=== PATIENT | male | born 1960 | race Caucasian/White ===

== ENCOUNTER → 2023-12-24 | Outpatient (REF) | payer MEDICAID, SELFPAY ==
[2023-12-24 08:15] LABS: Hematocrit 33.3 % (40-54); Hemoglobin 10.5 g/dL (13.0-16.5); Mean Corp Hgb Conc 31.5 g/dL (32-36); Mean Corpuscular Hgb 30.1 pg (27.0-32.0); Mean Corpuscular Volume 95.4 fL (80-94); Mean Platelet Vol. 9.7 fl (6.2-12.0); Platelet Count 265 K/mm3 (150-450); RBC Distribution Width CV 13.8 % (11.6-14.6); RBC Distribution Width SD 48.3 fl (35.1-43.9); Red Blood Count 3.49 M/mm3 (4.6-6.2); White Blood Count 3.7 K/mm3 (4.4-11.0)
[2023-12-24 08:31] LABS: Anion Gap 7 (5-15); BUN 30 mg/dL (7-18); BUN/Creat Ratio 28.8 RATIO (10-20); Calcium,Total 9.1 mg/dL (8.5-10.1); Chloride 109 mmol/L (98-107); Creatinine, Serum 1.04 mg/dL (0.70-1.30); EST Glomerular Filtration Rate 77 mL/min (>60); Est Glom Filt Rate - Afr Amer 93 mL/min (>60); Glucose 133 mg/dL (74-106); Potassium 4.2 mmol/L (3.5-5.1); Sodium Level 140 mmol/L (136-145)
[2023-12-24 08:42] LABS: Hemoglobin A1c 7.1 % (3.8-5.6)
== END | disposition home or self-care (01) ==
LOC: OLS.SANC 05:52
PROVIDERS: Visit Provider Internal Medicine
DX: D64.9 Anemia, unspecified (principal); E11.9 Type 2 diabetes mellitus without complications; E87.5 Hyperkalemia; I82.409 Acute embolism and thrombosis of unspecified deep veins of unspecified lower extremity; I10 Essential (primary) hypertension; E78.5 Hyperlipidemia, unspecified; Z79.899 Other long term (current) drug therapy
CPT/HCPCS: 36415; 80048; 83036; 85027

== ENCOUNTER → 2023-12-28 | Outpatient (REF) | payer MEDICAID, SELFPAY ==
[2023-12-28 08:12] LABS: Anion Gap 4 (5-15); BUN 30 mg/dL (7-18); BUN/Creat Ratio 24.8 RATIO (10-20); Calcium,Total 8.7 mg/dL (8.5-10.1); Chloride 109 mmol/L (98-107); Creatinine, Serum 1.21 mg/dL (0.70-1.30); EST Glomerular Filtration Rate 64 mL/min (>60); Est Glom Filt Rate - Afr Amer 78 mL/min (>60); Glucose 117 mg/dL (74-106); Potassium 4.3 mmol/L (3.5-5.1); Sodium Level 138 mmol/L (136-145)
[2023-12-28 08:21] LABS: BNP,B-Type NATRIURETIC PEPTIDE 51.7 pg/mL (0-100)
== END | disposition home or self-care (01) ==
LOC: OLS.SANC 05:00
PROVIDERS: Visit Provider Internal Medicine
DX: D64.9 Anemia, unspecified (principal); E11.9 Type 2 diabetes mellitus without complications; I10 Essential (primary) hypertension; E78.5 Hyperlipidemia, unspecified
CPT/HCPCS: 36415; 80048; 83880

== ENCOUNTER → 2023-12-31 | Outpatient (REF) | payer MEDICAID, SELFPAY ==
[2023-12-31 08:37] LABS: Hematocrit 33.8 % (40-54); Hemoglobin 10.9 g/dL (13.0-16.5); Mean Corp Hgb Conc 32.2 g/dL (32-36); Mean Corpuscular Hgb 30.4 pg (27.0-32.0); Mean Corpuscular Volume 94.2 fL (80-94); Mean Platelet Vol. 9.7 fl (6.2-12.0); Platelet Count 252 K/mm3 (150-450); RBC Distribution Width CV 13.6 % (11.6-14.6); RBC Distribution Width SD 47.7 fl (35.1-43.9); Red Blood Count 3.59 M/mm3 (4.6-6.2); White Blood Count 4.9 K/mm3 (4.4-11.0)
[2023-12-31 08:45] LABS: Anion Gap 5 (5-15); BUN 31 mg/dL (7-18); BUN/Creat Ratio 21.2 RATIO (10-20); Calcium,Total 9.2 mg/dL (8.5-10.1); Chloride 108 mmol/L (98-107); Creatinine, Serum 1.46 mg/dL (0.70-1.30); EST Glomerular Filtration Rate 52 mL/min (>60); Est Glom Filt Rate - Afr Amer 63 mL/min (>60); Glucose 121 mg/dL (74-106); Potassium 4.7 mmol/L (3.5-5.1); Sodium Level 138 mmol/L (136-145)
== END | disposition home or self-care (01) ==
LOC: OLS.SANC 05:00
PROVIDERS: Visit Provider Internal Medicine
DX: D64.9 Anemia, unspecified (principal); E11.9 Type 2 diabetes mellitus without complications; I10 Essential (primary) hypertension; E78.5 Hyperlipidemia, unspecified
CPT/HCPCS: 36415; 80048; 85027

== ENCOUNTER → 2024-01-04 | Outpatient (REF) | payer MEDICAID, SELFPAY ==
[2024-01-04 07:40] LABS: Anion Gap 4 (5-15); BUN 30 mg/dL (7-18); BUN/Creat Ratio 23.6 RATIO (10-20); Chloride 110 mmol/L (98-107); Creatinine, Serum 1.27 mg/dL (0.70-1.30); EST Glomerular Filtration Rate 61 mL/min (>60); Est Glom Filt Rate - Afr Amer 74 mL/min (>60); Glucose 74 mg/dL (74-106); Potassium 4.7 mmol/L (3.5-5.1); Sodium Level 138 mmol/L (136-145)
== END | disposition home or self-care (01) ==
LOC: OLS.SANC 05:00
PROVIDERS: Visit Provider Internal Medicine
DX: D64.9 Anemia, unspecified (principal); E11.22 Type 2 diabetes mellitus with diabetic chronic kidney disease; N18.2 Chronic kidney disease, stage 2 (mild); E87.5 Hyperkalemia
CPT/HCPCS: 36415; 80048

== ENCOUNTER → 2024-01-07 | Outpatient (REF) | payer MEDICAID, SELFPAY ==
[2024-01-07 08:19] LABS: Hematocrit 31.1 % (40-54); Mean Corp Hgb Conc 32.2 g/dL (32-36); Mean Corpuscular Hgb 30.1 pg (27.0-32.0); Mean Corpuscular Volume 93.7 fL (80-94); Mean Platelet Vol. 9.5 fl (6.2-12.0); Platelet Count 166 K/mm3 (150-450); RBC Distribution Width CV 13.6 % (11.6-14.6); RBC Distribution Width SD 46.4 fl (35.1-43.9); Red Blood Count 3.32 M/mm3 (4.6-6.2)
[2024-01-07 08:29] LABS: Anion Gap 2 (5-15); BUN 25 mg/dL (7-18); BUN/Creat Ratio 19.1 RATIO (10-20); Calcium,Total 8.8 mg/dL (8.5-10.1); Chloride 108 mmol/L (98-107); Creatinine, Serum 1.31 mg/dL (0.70-1.30); EST Glomerular Filtration Rate 59 mL/min (>60); Est Glom Filt Rate - Afr Amer 71 mL/min (>60); Glucose 122 mg/dL (74-106); Potassium 4.9 mmol/L (3.5-5.1); Sodium Level 137 mmol/L (136-145)
== END | disposition home or self-care (01) ==
LOC: OLS.SANC 05:00
PROVIDERS: Visit Provider Internal Medicine
DX: D64.9 Anemia, unspecified (principal); E11.9 Type 2 diabetes mellitus without complications; I10 Essential (primary) hypertension; E78.5 Hyperlipidemia, unspecified
CPT/HCPCS: 36415; 80048; 85027

== ENCOUNTER → 2024-06-23 | Outpatient (REF) | payer MEDICAID, SELFPAY ==
[2024-06-23 09:06] LABS: Hematocrit 25.3 % (40-54); Hemoglobin 7.8 g/dL (13.0-16.5); Mean Corp Hgb Conc 30.8 g/dL (32-36); Mean Corpuscular Hgb 29.2 pg (27.0-32.0); Mean Corpuscular Volume 94.8 fL (80-94); Mean Platelet Vol. 8.7 fl (6.2-12.0); Platelet Count 477 K/mm3 (150-450); RBC Distribution Width CV 13.2 % (11.6-14.6); RBC Distribution Width SD 45.6 fl (35.1-43.9); Red Blood Count 2.67 M/mm3 (4.6-6.2)
[2024-06-23 09:53] LABS: ALB/GLOB Ratio 0.4 RATIO (0.9-2.4); AST(SGOT) 19 U/L (15-37); Alanine Aminotransfer ALT/SGPT 13 U/L (16-61); Alkaline Phosphatase 89 U/L (45-117); Anion Gap 5 (5-15); BUN 25 mg/dL (7-18); BUN/Creat Ratio 21.6 RATIO (10-20); Calcium,Total 8.8 mg/dL (8.5-10.1); Chloride 108 mmol/L (98-107); Cholesterol 113 mg/dL (200); Creatinine, Serum 1.16 mg/dL (0.70-1.30); EST Glomerular Filtration Rate 67 mL/min (>60); Est Glom Filt Rate - Afr Amer 81 mL/min (>60); Globulin 4.5 g/dL (2.2-4.2); Glucose 111 mg/dL (74-106); High Density Lipoprotein 39 mg/dL; Protein, Total 6.5 g/dL (6.4-8.2); Sodium Level 139 mmol/L (136-145); Triglycerides 124 mg/dL; Uric Acid 3.8 mg/dL (3.5-7.2); Very Low Density Lipoprotein 25 mg/dL (5-40)
[2024-06-23 10:33] LABS: Hemoglobin A1c 7.8 % (3.8-5.6)
[2024-06-23 15:56] LABS: Vitamin D,25 Hydroxy 27.8 ng/mL
== END | disposition home or self-care (01) ==
LOC: OLS.ACW100 05:00
PROVIDERS: Visit Provider Family Medicine
DX: Z00.00 Encounter for general adult medical examination without abnormal findings (principal)
CPT/HCPCS: 36415; 80053; 80061; 82306; 83036; 83735; 84443; 84550; 85027

== ENCOUNTER → 2024-06-30 | Outpatient (REF) | payer MEDICAID, SELFPAY ==
[2024-06-30 08:39] LABS: Hematocrit 26.4 % (40-54); Hemoglobin 8.4 g/dL (13.0-16.5); Mean Corp Hgb Conc 31.8 g/dL (32-36); Mean Corpuscular Hgb 29.4 pg (27.0-32.0); Mean Corpuscular Volume 92.3 fL (80-94); Mean Platelet Vol. 8.6 fl (6.2-12.0); Platelet Count 335 K/mm3 (150-450); RBC Distribution Width CV 13.2 % (11.6-14.6); RBC Distribution Width SD 44.7 fl (35.1-43.9); Red Blood Count 2.86 M/mm3 (4.6-6.2); White Blood Count 3.8 K/mm3 (4.4-11.0)
== END | disposition home or self-care (01) ==
LOC: OLS.ACW100 05:00
PROVIDERS: Visit Provider Family Medicine
DX: E11.65 Type 2 diabetes mellitus with hyperglycemia (principal); E11.40 Type 2 diabetes mellitus with diabetic neuropathy, unspecified
CPT/HCPCS: 36415; 85027

== ENCOUNTER → 2024-07-01 | Outpatient (REF) | payer MEDICAID, SELFPAY | END | disposition home or self-care (01) | LOC: OLS.ACW100 05:00 | PROVIDERS: Visit Provider Family Medicine | DX: E11.65 Type 2 diabetes mellitus with hyperglycemia (principal); E43 Unspecified severe protein-calorie malnutrition; E78.5 Hyperlipidemia, unspecified; F03.90 Unspecified dementia, unspecified severity, without behavioral disturbance, psychotic disturbance, mood disturbance, and anxiety | CPT/HCPCS: 36415; 87040 ==

== ENCOUNTER → 2024-07-07 | Outpatient (REF) | payer MEDICAID, SELFPAY ==
[2024-07-07 09:01] LABS: Hemoglobin 7.5 g/dL (13.0-16.5); Mean Corp Hgb Conc 31.3 g/dL (32-36); Mean Corpuscular Hgb 29.1 pg (27.0-32.0); Mean Platelet Vol. 9.2 fl (6.2-12.0); Platelet Count 273 K/mm3 (150-450); RBC Distribution Width CV 13.7 % (11.6-14.6); RBC Distribution Width SD 46.8 fl (35.1-43.9); Red Blood Count 2.58 M/mm3 (4.6-6.2); White Blood Count 4.3 K/mm3 (4.4-11.0)
[2024-07-08 03:57] LABS: Anion Gap 0 (5-15); BUN 26 mg/dL (7-18); BUN/Creat Ratio 22.8 RATIO (10-20); Calcium,Total 8.7 mg/dL (8.5-10.1); Chloride 111 mmol/L (98-107); Creatinine, Serum 1.14 mg/dL (0.70-1.30); EST Glomerular Filtration Rate 69 mL/min (>60); Est Glom Filt Rate - Afr Amer 83 mL/min (>60); Glucose 66 mg/dL (74-106); Potassium 5.2 mmol/L (3.5-5.1); Sodium Level 140 mmol/L (136-145)
== END | disposition home or self-care (01) ==
LOC: OLS.ACW100 05:00
PROVIDERS: Visit Provider Family Medicine
DX: E11.65 Type 2 diabetes mellitus with hyperglycemia (principal)
CPT/HCPCS: 36415; 80048; 85027

== ENCOUNTER → 2024-07-14 | Outpatient (REF) | payer MEDICAID, SELFPAY ==
[2024-07-14 09:58] LABS: Hematocrit 26.2 % (40-54); Mean Corp Hgb Conc 30.5 g/dL (32-36); Mean Corpuscular Hgb 28.7 pg (27.0-32.0); Mean Corpuscular Volume 93.9 fL (80-94); Mean Platelet Vol. 9.1 fl (6.2-12.0); Platelet Count 280 K/mm3 (150-450); RBC Distribution Width SD 47.9 fl (35.1-43.9); Red Blood Count 2.79 M/mm3 (4.6-6.2); White Blood Count 4.8 K/mm3 (4.4-11.0)
[2024-07-14 10:24] LABS: Anion Gap 5 (5-15); BUN 20 mg/dL (7-18); BUN/Creat Ratio 17.4 RATIO (10-20); Calcium,Total 8.8 mg/dL (8.5-10.1); Chloride 110 mmol/L (98-107); Creatinine, Serum 1.15 mg/dL (0.70-1.30); EST Glomerular Filtration Rate 68 mL/min (>60); Est Glom Filt Rate - Afr Amer 82 mL/min (>60); Glucose 77 mg/dL (74-106); Sodium Level 138 mmol/L (136-145)
== END | disposition home or self-care (01) ==
LOC: OLS.ACW100 05:00
PROVIDERS: Visit Provider Family Medicine
DX: E87.5 Hyperkalemia (principal); M86.171 Other acute osteomyelitis, right ankle and foot; E11.65 Type 2 diabetes mellitus with hyperglycemia; E11.40 Type 2 diabetes mellitus with diabetic neuropathy, unspecified
CPT/HCPCS: 36415; 80048; 85027

== ENCOUNTER → 2024-07-21 | Outpatient (REF) | payer MEDICAID, SELFPAY ==
[2024-07-21 08:35] LABS: Hematocrit 25.9 % (40-54); Mean Corp Hgb Conc 30.9 g/dL (32-36); Mean Corpuscular Hgb 29.3 pg (27.0-32.0); Mean Corpuscular Volume 94.9 fL (80-94); Mean Platelet Vol. 9.1 fl (6.2-12.0); Platelet Count 255 K/mm3 (150-450); RBC Distribution Width SD 47.7 fl (35.1-43.9); Red Blood Count 2.73 M/mm3 (4.6-6.2); White Blood Count 3.6 K/mm3 (4.4-11.0)
== END | disposition home or self-care (01) ==
LOC: OLS.ACW100 04:00
PROVIDERS: Referring Provider Family Medicine; Visit Provider Family Medicine
DX: M86.171 Other acute osteomyelitis, right ankle and foot (principal); E11.40 Type 2 diabetes mellitus with diabetic neuropathy, unspecified
CPT/HCPCS: 36415; 85027

== ENCOUNTER → 2024-07-28 | Outpatient (REF) | payer MEDICAID, SELFPAY ==
[2024-07-28 10:49] LABS: Hematocrit 20.8 % (40-54); Hemoglobin 6.4 g/dL (13.0-16.5); Mean Corp Hgb Conc 30.8 g/dL (32-36); Mean Corpuscular Hgb 29.1 pg (27.0-32.0); Mean Corpuscular Volume 94.5 fL (80-94); Mean Platelet Vol. 9.3 fl (6.2-12.0); Platelet Count 280 K/mm3 (150-450); RBC Distribution Width CV 13.8 % (11.6-14.6); RBC Distribution Width SD 47.4 fl (35.1-43.9); White Blood Count 4.8 K/mm3 (4.4-11.0)
== END | disposition home or self-care (01) ==
LOC: OLS.ACW200 05:00
PROVIDERS: Visit Provider Family Medicine
DX: M86.171 Other acute osteomyelitis, right ankle and foot (principal); E11.40 Type 2 diabetes mellitus with diabetic neuropathy, unspecified
CPT/HCPCS: 36415; 85027

== ENCOUNTER → 2024-08-11 05:00 | Outpatient (REF) | payer MEDICAID, SELFPAY ==
[2024-08-11 09:53] LABS: Hematocrit 33.2 % (40-54); Mean Corp Hgb Conc 30.1 g/dL (32-36); Mean Corpuscular Hgb 28.3 pg (27.0-32.0); Mean Corpuscular Volume 94.1 fL (80-94); Mean Platelet Vol. 8.9 fl (6.2-12.0); Platelet Count 284 K/mm3 (150-450); RBC Distribution Width CV 15.5 % (11.6-14.6); Red Blood Count 3.53 M/mm3 (4.6-6.2); White Blood Count 4.5 K/mm3 (4.4-11.0)
== END ==
LOC: OLS.ACW200 05:00
PROVIDERS: Visit Provider Family Medicine
DX: M86.171 Other acute osteomyelitis, right ankle and foot (principal); E11.65 Type 2 diabetes mellitus with hyperglycemia; Z16.24 Resistance to multiple antibiotics; E11.40 Type 2 diabetes mellitus with diabetic neuropathy, unspecified
CPT/HCPCS: 36415; 85027

== ENCOUNTER → 2024-08-18 05:00 | Outpatient (REF) | payer MEDICAID, SELFPAY ==
[2024-08-18 09:20] LABS: Hematocrit 35.4 % (40-54); Hemoglobin 10.6 g/dL (13.0-16.5); Mean Corp Hgb Conc 29.9 g/dL (32-36); Mean Corpuscular Hgb 28.4 pg (27.0-32.0); Mean Corpuscular Volume 94.9 fL (80-94); Mean Platelet Vol. 9.2 fl (6.2-12.0); Platelet Count 247 K/mm3 (150-450); RBC Distribution Width CV 15.4 % (11.6-14.6); RBC Distribution Width SD 53.1 fl (35.1-43.9); Red Blood Count 3.73 M/mm3 (4.6-6.2)
== END ==
LOC: OLS.ACW200 05:00
PROVIDERS: Visit Provider Family Medicine
DX: M86.171 Other acute osteomyelitis, right ankle and foot (principal); E11.65 Type 2 diabetes mellitus with hyperglycemia; Z16.24 Resistance to multiple antibiotics; E11.40 Type 2 diabetes mellitus with diabetic neuropathy, unspecified
CPT/HCPCS: 36415; 85027

== ENCOUNTER → 2024-08-25 05:00 | Outpatient (REF) | payer MEDICAID, SELFPAY ==
[2024-08-25 09:26] LABS: Hematocrit 31.8 % (40-54); Hemoglobin 9.8 g/dL (13.0-16.5); Mean Corp Hgb Conc 30.8 g/dL (32-36); Mean Corpuscular Hgb 28.7 pg (27.0-32.0); Mean Corpuscular Volume 93.3 fL (80-94); Mean Platelet Vol. 9.1 fl (6.2-12.0); Platelet Count 209 K/mm3 (150-450); RBC Distribution Width CV 15.1 % (11.6-14.6); RBC Distribution Width SD 51.8 fl (35.1-43.9); Red Blood Count 3.41 M/mm3 (4.6-6.2); White Blood Count 3.4 K/mm3 (4.4-11.0)
== END ==
LOC: OLS.ACW200 05:00
PROVIDERS: Visit Provider Family Medicine
DX: M86.171 Other acute osteomyelitis, right ankle and foot (principal); E11.65 Type 2 diabetes mellitus with hyperglycemia; Z16.24 Resistance to multiple antibiotics; E11.40 Type 2 diabetes mellitus with diabetic neuropathy, unspecified
CPT/HCPCS: 36415; 85027

== ENCOUNTER → 2024-09-01 05:00 | Outpatient (REF) | payer MEDICAID, SELFPAY ==
[2024-09-01 09:40] LABS: Hematocrit 33.4 % (40-54); Hemoglobin 10.3 g/dL (13.0-16.5); Mean Corp Hgb Conc 30.8 g/dL (32-36); Mean Corpuscular Hgb 29.4 pg (27.0-32.0); Mean Corpuscular Volume 95.4 fL (80-94); Mean Platelet Vol. 9.3 fl (6.2-12.0); Platelet Count 173 K/mm3 (150-450); RBC Distribution Width CV 15.4 % (11.6-14.6); RBC Distribution Width SD 53.1 fl (35.1-43.9); White Blood Count 5.5 K/mm3 (4.4-11.0)
== END ==
LOC: OLS.ACW200 05:00
PROVIDERS: Visit Provider Family Medicine
DX: M86.171 Other acute osteomyelitis, right ankle and foot (principal); E11.65 Type 2 diabetes mellitus with hyperglycemia; Z16.24 Resistance to multiple antibiotics; E11.40 Type 2 diabetes mellitus with diabetic neuropathy, unspecified
CPT/HCPCS: 36415; 85027

== ENCOUNTER → 2024-09-08 | Outpatient (REF) | payer MEDICAID, SELFPAY ==
[2024-09-08 08:27] LABS: Hematocrit 31.9 % (40-54); Mean Corp Hgb Conc 31.3 g/dL (32-36); Mean Corpuscular Hgb 29.8 pg (27.0-32.0); Mean Corpuscular Volume 94.9 fL (80-94); Mean Platelet Vol. 9.4 fl (6.2-12.0); Platelet Count 151 K/mm3 (150-450); RBC Distribution Width CV 15.4 % (11.6-14.6); RBC Distribution Width SD 53.6 fl (35.1-43.9); Red Blood Count 3.36 M/mm3 (4.6-6.2); White Blood Count 4.6 K/mm3 (4.4-11.0)
[2024-09-08 09:57] LABS: Pro- Brain NATRIURETIC PEPTIDE 3548 pg/mL (<=900)
[2024-09-08 10:54] LABS: ALB/GLOB Ratio 1.2 RATIO (0.9-2.4); AST(SGOT) 16 U/L (<=37); Alanine Aminotransfer ALT/SGPT 10 U/L (<=46); Albumin, Serum 3.4 g/dL (3.4-4.8); Alkaline Phosphatase 81 U/L (40-129); Anion Gap 9 (5-15); BUN 23 mg/dL (4-19); BUN/Creat Ratio 19.7 RATIO (10-20); Calcium 8.6 mg/dL (7.6-11.0); Carbon Dioxide 23.1 mmol/L (22.0-29.0); Chloride 103 mmol/L (96-108); Creatinine, Serum 1.17 mg/dL (0.70-1.20); EST Glomerular Filtration Rate 70 (>60); Globulin 2.7 g/dL (2.2-4.2); Glucose 164 mg/dL (70-99); Potassium 5.3 mmol/L (3.3-5.1); Protein, Total 6.1 g/dL (5.9-8.4); Sodium Level 136 mmol/L (133-145); Total Bilirubin < 0.15 mg/dL (0.00-1.30)
== END | disposition home or self-care (01) ==
LOC: OLS.ACW100 04:00
PROVIDERS: Referring Provider Family Medicine; Visit Provider Family Medicine
DX: D64.9 Anemia, unspecified (principal); M86.171 Other acute osteomyelitis, right ankle and foot; S92.491D Other fracture of right great toe, subsequent encounter for fracture with routine healing; R41.841 Cognitive communication deficit
CPT/HCPCS: 36415; 80053; 83880; 85027

== ENCOUNTER → 2024-09-12 | Outpatient (REF) | payer MEDICAID, SELFPAY ==
[2024-09-12 07:58] LABS: Hematocrit 32.9 % (40-54); Mean Corp Hgb Conc 30.4 g/dL (32-36); Mean Corpuscular Hgb 29.4 pg (27.0-32.0); Mean Corpuscular Volume 96.8 fL (80-94); Mean Platelet Vol. 9.3 fl (6.2-12.0); Platelet Count 177 K/mm3 (150-450); RBC Distribution Width CV 15.5 % (11.6-14.6); RBC Distribution Width SD 54.4 fl (35.1-43.9); White Blood Count 4.6 K/mm3 (4.4-11.0)
[2024-09-12 08:25] LABS: Pro- Brain NATRIURETIC PEPTIDE 3949 pg/mL (<=900)
[2024-09-12 08:33] LABS: ALB/GLOB Ratio 1.2 RATIO (0.9-2.4); AST(SGOT) 16 U/L (<=37); Alanine Aminotransfer ALT/SGPT 11 U/L (<=46); Albumin, Serum 3.5 g/dL (3.4-4.8); Alkaline Phosphatase 83 U/L (40-129); Anion Gap 13 (5-15); BUN 28 mg/dL (4-19); BUN/Creat Ratio 19.1 RATIO (10-20); Calcium,Total 8.6 mg/dL (7.6-11.0); Carbon Dioxide 21.3 mmol/L (21.0-32.0); Chloride 101 mmol/L (98-108); Creatinine, Serum 1.46 mg/dL (0.70-1.20); EST Glomerular Filtration Rate 53 (>60); Globulin 2.9 g/dL (2.2-4.2); Glucose 226 mg/dL (70-99); Potassium 5.9 mmol/L (3.3-5.1); Protein, Total 6.4 g/dL (5.9-8.4); Sodium Level 135 mmol/L (133-145); Total Bilirubin < 0.15 mg/dL (0.00-1.30)
== END | disposition home or self-care (01) ==
LOC: OLS.ACW200 05:00
PROVIDERS: Visit Provider Family Medicine
DX: M86.171 Other acute osteomyelitis, right ankle and foot (principal); D64.9 Anemia, unspecified; S92.491D Other fracture of right great toe, subsequent encounter for fracture with routine healing; R41.841 Cognitive communication deficit
CPT/HCPCS: 36415; 80053; 83880; 85027

== ENCOUNTER → 2024-09-15 | Outpatient (REF) | payer MEDICAID, SELFPAY ==
[2024-09-15 08:23] LABS: Hematocrit 28.5 % (40-54); Hemoglobin 8.9 g/dL (13.0-16.5); Mean Corp Hgb Conc 31.2 g/dL (32-36); Mean Corpuscular Hgb 29.7 pg (27.0-32.0); Mean Platelet Vol. 9.3 fl (6.2-12.0); Platelet Count 165 K/mm3 (150-450); RBC Distribution Width CV 15.6 % (11.6-14.6); RBC Distribution Width SD 53.7 fl (35.1-43.9); White Blood Count 3.5 K/mm3 (4.4-11.0)
[2024-09-15 09:01] LABS: Anion Gap 10 (5-15); BUN 34 mg/dL (4-19); BUN/Creat Ratio 21.3 RATIO (10-20); Calcium,Total 8.1 mg/dL (7.6-11.0); Carbon Dioxide 21.1 mmol/L (21.0-32.0); Chloride 99 mmol/L (98-108); Creatinine, Serum 1.59 mg/dL (0.70-1.20); EST Glomerular Filtration Rate 48 (>60); Glucose 185 mg/dL (70-99); Potassium 5.9 mmol/L (3.3-5.1); Sodium Level 131 mmol/L (133-145)
== END | disposition home or self-care (01) ==
LOC: OLS.ACW200 05:00
PROVIDERS: Visit Provider Family Medicine
DX: M86.171 Other acute osteomyelitis, right ankle and foot (principal); E11.65 Type 2 diabetes mellitus with hyperglycemia; E11.40 Type 2 diabetes mellitus with diabetic neuropathy, unspecified
CPT/HCPCS: 36415; 80048; 85027

== ENCOUNTER → 2024-09-22 | Outpatient (REF) | payer MEDICAID, SELFPAY ==
[2024-09-22 09:07] LABS: Hemoglobin 9.2 g/dL (13.0-16.5); Mean Corp Hgb Conc 29.7 g/dL (32-36); Mean Corpuscular Hgb 29.4 pg (27.0-32.0); Mean Platelet Vol. 9.3 fl (6.2-12.0); Platelet Count 219 K/mm3 (150-450); RBC Distribution Width CV 16.1 % (11.6-14.6); RBC Distribution Width SD 57.7 fl (35.1-43.9); Red Blood Count 3.13 M/mm3 (4.6-6.2); White Blood Count 3.5 K/mm3 (4.4-11.0)
[2024-09-22 13:55] LABS: ALB/GLOB Ratio 1.2 RATIO (0.9-2.4); AST(SGOT) 13 U/L (<=37); Alanine Aminotransfer ALT/SGPT 11 U/L (<=46); Albumin, Serum 3.6 g/dL (3.4-4.8); Alkaline Phosphatase 100 U/L (40-129); Anion Gap 9 (5-15); BUN 33 mg/dL (4-19); BUN/Creat Ratio 24.7 RATIO (10-20); Chloride 105 mmol/L (98-108); Creatinine, Serum 1.32 mg/dL (0.70-1.20); EST Glomerular Filtration Rate 60 (>60); Globulin 2.9 g/dL (2.2-4.2); Glucose 94 mg/dL (70-99); Potassium 5.2 mmol/L (3.3-5.1); Protein, Total 6.4 g/dL (5.9-8.4); Sodium Level 138 mmol/L (133-145); Total Bilirubin 0.21 mg/dL (0.00-1.30)
== END | disposition home or self-care (01) ==
LOC: OLS.ACW200 05:00
PROVIDERS: Visit Provider Family Medicine
DX: M86.171 Other acute osteomyelitis, right ankle and foot (principal); D64.9 Anemia, unspecified
CPT/HCPCS: 36415; 80053; 85027

== ENCOUNTER → 2024-10-13 | Outpatient (REF) | payer MEDICAID, SELFPAY ==
[2024-10-13 10:07] LABS: Hematocrit 33.3 % (40-54); Hemoglobin 10.3 g/dL (13.0-16.5); Mean Corp Hgb Conc 30.9 g/dL (32-36); Mean Corpuscular Hgb 30.3 pg (27.0-32.0); Mean Corpuscular Volume 97.9 fL (80-94); Mean Platelet Vol. 9.8 fl (6.2-12.0); Platelet Count 196 K/mm3 (150-450); RBC Distribution Width CV 15.1 % (11.6-14.6); RBC Distribution Width SD 54.4 fl (35.1-43.9); White Blood Count 4.8 K/mm3 (4.4-11.0)
[2024-10-13 10:13] LABS: ALB/GLOB Ratio 1.4 RATIO (0.9-2.4); AST(SGOT) 17 U/L (<=37); Alanine Aminotransfer ALT/SGPT 15 U/L (<=46); Albumin, Serum 3.7 g/dL (3.4-4.8); Alkaline Phosphatase 83 U/L (40-129); Anion Gap 10 (5-15); BUN 30 mg/dL (4-19); BUN/Creat Ratio 22.7 RATIO (10-20); Calcium,Total 8.8 mg/dL (7.6-11.0); Chloride 105 mmol/L (98-108); EST Glomerular Filtration Rate 61 (>60); Globulin 2.7 g/dL (2.2-4.2); Glucose 167 mg/dL (70-99); Potassium 5.7 mmol/L (3.3-5.1); Protein, Total 6.4 g/dL (5.9-8.4); Sodium Level 137 mmol/L (133-145); Total Bilirubin 0.18 mg/dL (0.00-1.30)
== END | disposition home or self-care (01) ==
LOC: OLS.ACW200 05:00
PROVIDERS: Visit Provider Family Medicine
DX: D64.9 Anemia, unspecified (principal); M86.171 Other acute osteomyelitis, right ankle and foot; S92.491D Other fracture of right great toe, subsequent encounter for fracture with routine healing; R41.841 Cognitive communication deficit
CPT/HCPCS: 36415; 80053; 85027

== ENCOUNTER → 2024-10-20 | Outpatient (REF) | payer MEDICAID, SELFPAY ==
[2024-10-20 09:03] LABS: Hematocrit 30.7 % (40-54); Hemoglobin 9.6 g/dL (13.0-16.5); Mean Corp Hgb Conc 31.3 g/dL (32-36); Mean Corpuscular Hgb 30.1 pg (27.0-32.0); Mean Corpuscular Volume 96.2 fL (80-94); Mean Platelet Vol. 9.5 fl (6.2-12.0); Platelet Count 142 K/mm3 (150-450); RBC Distribution Width CV 14.8 % (11.6-14.6); RBC Distribution Width SD 52.8 fl (35.1-43.9); Red Blood Count 3.19 M/mm3 (4.6-6.2); White Blood Count 3.6 K/mm3 (4.4-11.0)
[2024-10-20 09:34] LABS: ALB/GLOB Ratio 1.4 RATIO (0.9-2.4); AST(SGOT) 17 U/L (<=37); Alanine Aminotransfer ALT/SGPT 16 U/L (<=46); Albumin, Serum 3.8 g/dL (3.4-4.8); Alkaline Phosphatase 81 U/L (40-129); Anion Gap 10 (5-15); BUN 32 mg/dL (4-19); BUN/Creat Ratio 23.9 RATIO (10-20); Calcium,Total 8.7 mg/dL (7.6-11.0); Carbon Dioxide 21.4 mmol/L (21.0-32.0); Chloride 104 mmol/L (98-108); Creatinine, Serum 1.32 mg/dL (0.70-1.20); EST Glomerular Filtration Rate 60 (>60); Globulin 2.6 g/dL (2.2-4.2); Glucose 212 mg/dL (70-99); Potassium 5.4 mmol/L (3.3-5.1); Protein, Total 6.4 g/dL (5.9-8.4); Sodium Level 136 mmol/L (133-145); Total Bilirubin 0.18 mg/dL (0.00-1.30)
== END | disposition home or self-care (01) ==
LOC: OLS.ACW200 05:00
PROVIDERS: Visit Provider Family Medicine
DX: M86.171 Other acute osteomyelitis, right ankle and foot (principal); D64.9 Anemia, unspecified; S92.491D Other fracture of right great toe, subsequent encounter for fracture with routine healing; R41.841 Cognitive communication deficit
CPT/HCPCS: 36415; 80053; 85027

== ENCOUNTER → 2024-10-21 | Outpatient (REF) | payer SELFPAY | LOC: OLS.ACW100 06:00 | PROVIDERS: Visit Provider Family Medicine | DX: M86.171 Other acute osteomyelitis, right ankle and foot (principal); D64.9 Anemia, unspecified; S92.491D Other fracture of right great toe, subsequent encounter for fracture with routine healing; R41.841 Cognitive communication deficit ==

== ENCOUNTER → 2024-10-22 | Outpatient (REF) | payer MEDICAID, SELFPAY ==
[2024-10-22 08:01] LABS: Hematocrit 29.2 % (40-54); Hemoglobin 9.4 g/dL (13.0-16.5); Mean Corp Hgb Conc 32.2 g/dL (32-36); Mean Corpuscular Hgb 30.2 pg (27.0-32.0); Mean Corpuscular Volume 93.9 fL (80-94); Mean Platelet Vol. 9.8 fl (6.2-12.0); Platelet Count 150 K/mm3 (150-450); Red Blood Count 3.11 M/mm3 (4.6-6.2); White Blood Count 3.6 K/mm3 (4.4-11.0)
[2024-10-22 08:18] LABS: ALB/GLOB Ratio 1.4 RATIO (0.9-2.4); AST(SGOT) 24 U/L (<=37); Alanine Aminotransfer ALT/SGPT 21 U/L (<=46); Albumin, Serum 3.5 g/dL (3.4-4.8); Alkaline Phosphatase 84 U/L (40-129); Anion Gap 9 (5-15); BUN 31 mg/dL (4-19); BUN/Creat Ratio 23.5 RATIO (10-20); Calcium,Total 8.6 mg/dL (7.6-11.0); Carbon Dioxide 23.4 mmol/L (21.0-32.0); Chloride 106 mmol/L (98-108); EST Glomerular Filtration Rate 61 (>60); Globulin 2.5 g/dL (2.2-4.2); Glucose 107 mg/dL (70-99); Potassium 5.2 mmol/L (3.3-5.1); Sodium Level 138 mmol/L (133-145); Total Bilirubin 0.17 mg/dL (0.00-1.30)
== END | disposition home or self-care (01) ==
LOC: OLS.ACW200 05:00
PROVIDERS: Visit Provider Family Medicine
DX: M86.171 Other acute osteomyelitis, right ankle and foot (principal); N39.0 Urinary tract infection, site not specified; D64.9 Anemia, unspecified; S92.491D Other fracture of right great toe, subsequent encounter for fracture with routine healing
CPT/HCPCS: 36415; 80053; 85027

== ENCOUNTER → 2024-11-03 | Outpatient (REF) | payer MEDICAID, SELFPAY ==
[2024-11-03 09:23] LABS: Hematocrit 31.4 % (40-54); Hemoglobin 9.8 g/dL (13.0-16.5); Mean Corp Hgb Conc 31.2 g/dL (32-36); Mean Corpuscular Volume 99.4 fL (80-94); Mean Platelet Vol. 9.5 fl (6.2-12.0); Platelet Count 180 K/mm3 (150-450); RBC Distribution Width CV 14.7 % (11.6-14.6); RBC Distribution Width SD 53.9 fl (35.1-43.9); Red Blood Count 3.16 M/mm3 (4.6-6.2); White Blood Count 3.8 K/mm3 (4.4-11.0)
[2024-11-03 09:44] LABS: Anion Gap 10 (5-15); BUN 32 mg/dL (4-19); BUN/Creat Ratio 21.3 RATIO (10-20); Calcium,Total 8.4 mg/dL (7.6-11.0); Carbon Dioxide 23.4 mmol/L (21.0-32.0); Chloride 106 mmol/L (98-108); Creatinine, Serum 1.52 mg/dL (0.70-1.20); EST Glomerular Filtration Rate 51 (>60); Glucose 301 mg/dL (70-99); Potassium 5.1 mmol/L (3.3-5.1); Sodium Level 139 mmol/L (133-145)
== END | disposition home or self-care (01) ==
LOC: OLS.ACW200 05:00
PROVIDERS: Visit Provider Family Medicine
DX: M86.171 Other acute osteomyelitis, right ankle and foot (principal); N39.0 Urinary tract infection, site not specified; D64.9 Anemia, unspecified
CPT/HCPCS: 36415; 80048; 85027

== ENCOUNTER → 2024-11-10 | Outpatient (REF) | payer MEDICAID, SELFPAY ==
[2024-11-10 09:56] LABS: Hematocrit 28.6 % (40-54); Hemoglobin 8.9 g/dL (13.0-16.5); Mean Corp Hgb Conc 31.1 g/dL (32-36); Mean Corpuscular Hgb 30.7 pg (27.0-32.0); Mean Corpuscular Volume 98.6 fL (80-94); Mean Platelet Vol. 9.8 fl (6.2-12.0); Platelet Count 147 K/mm3 (150-450); RBC Distribution Width CV 14.9 % (11.6-14.6); RBC Distribution Width SD 53.2 fl (35.1-43.9); White Blood Count 2.8 K/mm3 (4.4-11.0)
[2024-11-10 10:12] LABS: Anion Gap 8 (5-15); BUN 32 mg/dL (4-19); BUN/Creat Ratio 23.5 RATIO (10-20); Calcium,Total 8.6 mg/dL (7.6-11.0); Carbon Dioxide 24.9 mmol/L (21.0-32.0); Chloride 105 mmol/L (98-108); Creatinine, Serum 1.38 mg/dL (0.70-1.20); EST Glomerular Filtration Rate 57 (>60); Glucose 117 mg/dL (70-99); Potassium 5.1 mmol/L (3.3-5.1); Sodium Level 138 mmol/L (133-145)
== END | disposition home or self-care (01) ==
LOC: OLS.ACW100 04:00
PROVIDERS: Referring Provider Family Medicine; Visit Provider Family Medicine
DX: M86.171 Other acute osteomyelitis, right ankle and foot (principal); N39.0 Urinary tract infection, site not specified; D64.9 Anemia, unspecified
CPT/HCPCS: 36415; 80048; 85027

== ENCOUNTER → 2024-11-17 | Outpatient (REF) | payer MEDICAID, SELFPAY ==
[2024-11-17 10:00] LABS: Hematocrit 26.6 % (40-54); Hemoglobin 8.1 g/dL (13.0-16.5); Mean Corp Hgb Conc 30.5 g/dL (32-36); Mean Corpuscular Hgb 30.8 pg (27.0-32.0); Mean Corpuscular Volume 101.1 fL (80-94); Platelet Count 140 K/mm3 (150-450); RBC Distribution Width CV 14.8 % (11.6-14.6); RBC Distribution Width SD 54.6 fl (35.1-43.9); Red Blood Count 2.63 M/mm3 (4.6-6.2)
[2024-11-17 10:15] LABS: Anion Gap 9 (5-15); BUN 30 mg/dL (4-19); BUN/Creat Ratio 23.3 RATIO (10-20); Calcium,Total 8.6 mg/dL (7.6-11.0); Carbon Dioxide 24.3 mmol/L (21.0-32.0); Chloride 105 mmol/L (98-108); Creatinine, Serum 1.27 mg/dL (0.70-1.20); EST Glomerular Filtration Rate 63 (>60); Glucose 192 mg/dL (70-99); Potassium 5.2 mmol/L (3.3-5.1); Sodium Level 138 mmol/L (133-145)
== END | disposition home or self-care (01) ==
LOC: OLS.ACW200 05:00
PROVIDERS: Visit Provider Family Medicine
DX: M86.171 Other acute osteomyelitis, right ankle and foot (principal); N39.0 Urinary tract infection, site not specified; D64.9 Anemia, unspecified
CPT/HCPCS: 36415; 80048; 85027

== ENCOUNTER → 2024-12-02 | Outpatient (REF) | payer MEDICAID, SELFPAY ==
[2024-12-02 09:00] LABS: Hematocrit 30.3 % (40-54); Hemoglobin 9.5 g/dL (13.0-16.5); Mean Corp Hgb Conc 31.4 g/dL (32-36); Mean Corpuscular Hgb 30.9 pg (27.0-32.0); Mean Corpuscular Volume 98.7 fL (80-94); Mean Platelet Vol. 9.8 fl (6.2-12.0); Platelet Count 195 K/mm3 (150-450); RBC Distribution Width CV 13.6 % (11.6-14.6); Red Blood Count 3.07 M/mm3 (4.6-6.2); White Blood Count 3.5 K/mm3 (4.4-11.0)
[2024-12-02 09:17] LABS: Anion Gap 10 (5-15); BUN 41 mg/dL (4-19); BUN/Creat Ratio 27.2 RATIO (10-20); Calcium,Total 8.8 mg/dL (7.6-11.0); Carbon Dioxide 22.2 mmol/L (21.0-32.0); Chloride 105 mmol/L (98-108); Creatinine, Serum 1.51 mg/dL (0.70-1.20); EST Glomerular Filtration Rate 51 (>60); Glucose 314 mg/dL (70-99); Potassium 5.5 mmol/L (3.3-5.1); Sodium Level 137 mmol/L (133-145)
== END | disposition home or self-care (01) ==
LOC: OLS.ACW100 04:00
PROVIDERS: Referring Provider Family Medicine; Visit Provider Family Medicine
DX: M86.171 Other acute osteomyelitis, right ankle and foot (principal); N39.0 Urinary tract infection, site not specified; D64.9 Anemia, unspecified
CPT/HCPCS: 36415; 80048; 85027

== ENCOUNTER → 2024-12-10 04:00 | Outpatient (REF) | payer MEDICAID, SELFPAY ==
[2024-12-10 07:57] LABS: Hematocrit 28.1 % (40-54); Hemoglobin 8.8 g/dL (13.0-16.5); Mean Corp Hgb Conc 31.3 g/dL (32-36); Mean Corpuscular Hgb 30.7 pg (27.0-32.0); Mean Corpuscular Volume 97.9 fL (80-94); Mean Platelet Vol. 10.2 fl (6.2-12.0); Platelet Count 140 K/mm3 (150-450); RBC Distribution Width CV 13.5 % (11.6-14.6); RBC Distribution Width SD 48.2 fl (35.1-43.9); Red Blood Count 2.87 M/mm3 (4.6-6.2); White Blood Count 3.7 K/mm3 (4.4-11.0)
[2024-12-10 08:12] LABS: Anion Gap 10 (5-15); BUN 32 mg/dL (4-19); BUN/Creat Ratio 21.7 RATIO (10-20); Calcium,Total 8.6 mg/dL (7.6-11.0); Carbon Dioxide 23.1 mmol/L (21.0-32.0); Chloride 105 mmol/L (98-108); Creatinine, Serum 1.49 mg/dL (0.70-1.20); EST Glomerular Filtration Rate 52 (>60); Glucose 145 mg/dL (70-99); Sodium Level 138 mmol/L (133-145)
== END ==
LOC: OLS.ACW100 04:00
PROVIDERS: Referring Provider Family Medicine; Visit Provider Family Medicine
DX: M86.171 Other acute osteomyelitis, right ankle and foot (principal); D64.9 Anemia, unspecified
CPT/HCPCS: 36415; 80048; 85027

== ENCOUNTER → 2024-12-15 | Outpatient (REF) | payer MEDICAID, SELFPAY ==
[2024-12-15 07:40] LABS: Hematocrit 25.8 % (40-54); Hemoglobin 8.2 g/dL (13.0-16.5); Mean Corp Hgb Conc 31.8 g/dL (32-36); Mean Corpuscular Hgb 31.1 pg (27.0-32.0); Mean Corpuscular Volume 97.7 fL (80-94); Mean Platelet Vol. 10.6 fl (6.2-12.0); Platelet Count 117 K/mm3 (150-450); RBC Distribution Width CV 13.5 % (11.6-14.6); RBC Distribution Width SD 48.1 fl (35.1-43.9); Red Blood Count 2.64 M/mm3 (4.6-6.2)
[2024-12-15 07:51] LABS: Anion Gap 9 (5-15); BUN 41 mg/dL (4-19); BUN/Creat Ratio 25.1 RATIO (10-20); Calcium,Total 8.5 mg/dL (7.6-11.0); Chloride 103 mmol/L (98-108); Creatinine, Serum 1.62 mg/dL (0.70-1.20); EST Glomerular Filtration Rate 47 (>60); Glucose 281 mg/dL (70-99); Potassium 4.7 mmol/L (3.3-5.1); Sodium Level 137 mmol/L (133-145)
== END | disposition home or self-care (01) ==
LOC: OLS.ACW200 05:00
PROVIDERS: Visit Provider Family Medicine
DX: M86.171 Other acute osteomyelitis, right ankle and foot (principal); N39.0 Urinary tract infection, site not specified; D64.9 Anemia, unspecified; S92.491D Other fracture of right great toe, subsequent encounter for fracture with routine healing
CPT/HCPCS: 36415; 80048; 85027

== ENCOUNTER → 2025-01-01 | Outpatient (REF) | payer MEDICAID, SELFPAY ==
[2025-01-01 09:30] LABS: Erythrocyte Sedimentation Rate 1 mm/hr (0-20)
[2025-01-01 09:31] LABS: Hemoglobin 3.9 g/dL (13.0-16.5); Mean Corpuscular Hgb 31.7 pg (27.0-32.0); Mean Corpuscular Volume 105.7 fL (80-94); Mean Platelet Vol. 10.1 fl (6.2-12.0); POSITIVE COUNT YES; Platelet Count 154 K/mm3 (150-450); RBC Distribution Width CV 17.3 % (11.6-14.6); RBC Distribution Width SD 58.4 fl (35.1-43.9); Red Blood Count 1.23 M/mm3 (4.6-6.2); White Blood Count 3.8 K/mm3 (4.4-11.0)
[2025-01-01 09:38] LABS: ALB/GLOB Ratio 1.6 RATIO (0.9-2.4); AST(SGOT) 22 U/L (<=37); Alanine Aminotransfer ALT/SGPT 16 U/L (<=46); Albumin, Serum 3.1 g/dL (3.4-4.8); Alkaline Phosphatase 50 U/L (40-129); Anion Gap 12 (5-15); BUN 92 mg/dL (4-19); BUN/Creat Ratio 42.7 RATIO (10-20); Calcium,Total 7.9 mg/dL (7.6-11.0); Carbon Dioxide 17.1 mmol/L (21.0-32.0); Chloride 108 mmol/L (98-108); Cholesterol 81 mg/dL (<=200); Creatinine, Serum 2.15 mg/dL (0.70-1.20); EST Glomerular Filtration Rate 34 (>60); Glucose 181 mg/dL (70-99); High Density Lipoprotein 30 mg/dL; Low Density Lipoprotein Calc. 18 mg/dL; Magnesium 2.3 mg/dL (1.5-2.2); Protein, Total 5.1 g/dL (5.9-8.4); Scan Indicated on CBC? Y/N YES- FLAGS NOTED; Sodium Level 137 mmol/L (133-145); Total Bilirubin 0.18 mg/dL (0.00-1.30); Triglycerides 162 mg/dL; Very Low Density Lipoprotein 32 mg/dL (5-40); cholesterol:hdl ratio screen 2.66
== END | disposition home or self-care (01) ==
LOC: OLS.ACW200 07:20
PROVIDERS: Visit Provider Family Medicine
DX: M86.171 Other acute osteomyelitis, right ankle and foot (principal); N39.0 Urinary tract infection, site not specified; D64.9 Anemia, unspecified; S92.491D Other fracture of right great toe, subsequent encounter for fracture with routine healing
CPT/HCPCS: 36415; 80053; 80061; 83735; 84443; 85027; 85652

== ENCOUNTER → 2025-01-15 | Outpatient (REF) | payer MEDICAID, SELFPAY ==
[2025-01-15 10:17] LABS: Cholesterol 203 mg/dL (<=200); Low Density Lipoprotein Calc. 116 mg/dL; Magnesium 2.2 mg/dL (1.5-2.2); Triglycerides 182 mg/dL; Very Low Density Lipoprotein 36 mg/dL (5-40); Vitamin D,25 Hydroxy 24.2 ng/mL (30-100); cholesterol:hdl ratio screen 4.01
[2025-01-15 10:23] LABS: AST(SGOT) 27 U/L (<=37); Alanine Aminotransfer ALT/SGPT 21 U/L (<=46); Albumin, Serum 3.4 g/dL (3.4-4.8); Alkaline Phosphatase 73 U/L (40-129); Anion Gap 15 (5-15); BUN 74 mg/dL (4-19); BUN/Creat Ratio 39.9 RATIO (10-20); Calcium,Total 8.7 mg/dL (7.6-11.0); Carbon Dioxide 18.5 mmol/L (21.0-32.0); Chloride 99 mmol/L (98-108); Globulin 2.9 g/dL (2.2-4.2); Glucose 504 mg/dL (70-99); Potassium 4.8 mmol/L (3.3-5.1)
== END | disposition home or self-care (01) ==
LOC: OLS.ACW100 05:00
PROVIDERS: Visit Provider Family Medicine
DX: M86.171 Other acute osteomyelitis, right ankle and foot (principal); N39.0 Urinary tract infection, site not specified; D64.9 Anemia, unspecified
CPT/HCPCS: 36415; 80053; 80061; 82306; 83735; 84443